=== PATIENT | male | born 1965 | race Caucasian/White ===

== ENCOUNTER 2024-06-27 17:08 | Emergency (ER) | payer BC ==
[2024-06-27] MEDS ORDERED: Sodium Chloride 0.9% 10 ML Syringe FLUSH PRN (17:27)
[2024-06-27 17:52] LABS: BASOPHILS ABSOLUTE AUTO 0.01 K/uL (0.02-0.10); BASOPHILS PERCENT AUTO 0.1 % (0.0-0.5); EOSINOPHILS ABSOLUTE AUTO 0.05 K/uL (0.04-0.40); EOSINOPHILS PERCENT AUTO 0.5 % (1.0-5.0); HEMATOCRIT 40.5 % (40.0-54.0); HEMOGLOBIN 13.7 g/dL (13.0-18.0); LYMPHOCYTES ABSOLUTE AUTO 1.62 K/uL (1.50-4.00); LYMPHOCYTES PERCENT AUTO 14.6 % (20.0-40.0); MEAN CORPUSCULAR HEMOGLOBIN 29.2 pg (27.0-32.0); MEAN CORPUSCULAR HGB CONC 33.8 g/dL (31.0-35.0); MEAN CORPUSCULAR VOLUME 86 fL (76-96); MEAN PLATELET VOLUME 10.2 fL (6.0-10.0); MONOCYTES ABSOLUTE AUTO 0.63 K/uL (0.20-0.80); MONOCYTES PERCENT AUTO 5.7 % (3.0-10.0); NEUTROPHILS ABSOLUTE AUTO 8.78 K/uL (2.00-7.50); NEUTROPHILS PERCENT AUTO 79.1 % (45.0-70.0); PLATELET COUNT,PLT 289 K/uL (150-400); RED BLOOD CELL COUNT 4.69 M/uL (4.50-6.50); RED CELL DISTRIBUTION WIDTH 13.7 % (11.0-16.0); WHITE BLOOD CELL COUNT,WBC 11.1 K/uL (4.0-11.0)
[2024-06-27] MEDS: Prochlorperazine 10 MG/2 ML SDV IVPUSH ONE (17:53)
[2024-06-27] MEDS: Sodium Chloride 0.9% 500 ML IV ONE (17:55)
[2024-06-27 18:04] LABS: A/G RATIO 1.1 (0.8-2.0); ALANINE AMINOTRANSFERASE,ALT 45 U/L (12-78); ALBUMIN 4.1 g/dL (3.4-5.0); ALKALINE PHOSPHATASE 59 U/L (46-116); ANION GAP 15.4 mmol/L (5.0-15.0); ASPARTATE AMNIOTRANSFERASE,AST 37 U/L (15-37); BILIRUBIN TOTAL 1.2 mg/dL (0.0-1.0); BLOOD UREA NITROGEN,BUN 22 mg/dL (8-26); CALCIUM 9.8 mg/dL (8.5-10.1); CHLORIDE,CL 103 mmol/L (98-107); ESTIMATED GFR 78 mL/min (>60); GLUCOSE RANDOM 173 mg/dL (74-100); MAGNESIUM 1.7 mg/dL (1.8-2.4); POTASSIUM,K 3.4 mmol/L (3.5-5.1); PROTEIN TOTAL,TP 7.7 g/dL (6.4-8.2); SODIUM,NA 139 mmol/L (136-145)
[2024-06-27 18:05] LABS: PTT,PARTIAL THROMBOPLSTIN TIME 24.6 SECONDS (24.4-33.2)
[2024-06-27 18:06] LABS: TROPONIN I HIGH SENSITIVITY 923.5 pg/ml (<=60.4)
[2024-06-27 18:07] LABS: PROTHROMBIN TIME 10.9 sec (9.0-11.5)
[2024-06-27] MEDS: Heparin Sodium/D5W 25,000 UNITS/500 ML BAG IV SCH (18:41)
[2024-06-27] MEDS: Enoxaparin 100 MG/1 ML Syringe SUBCUT ONE (19:18)
== END 2024-06-27 20:20 ==
LOC: LB.ED 17:26
DX: I21.4 Non-ST elevation (NSTEMI) myocardial infarction (principal)
CPT/HCPCS: 36415; 80053; 83735; 84484; 85025; 85610; 85730; 93005; 93010; 96361; 96365; 96372; 96375; 99285; A0425; A0429; J0780; J1644; J1650; J7040